=== PATIENT | male | born 1980 | race African-American/Black ===

== ENCOUNTER 2017-09-04 13:48 | Emergency (ER) | payer OTHER ==
[~2017-09-04] VITALS: Ht 182.9 cm; Wt 83.9 kg
[2017-09-04] MEDS ORDERED: NORCO 5-325 TA1 EACH PO (14:37)
== END 2017-09-04 15:08 | disposition home or self-care (01) ==
LOC: ER 13:48
DX: S93.401A Sprain of unspecified ligament of right ankle, initial encounter (principal); X50.3XXA Overexertion from repetitive movements, initial encounter; Y93.67 Activity, basketball; Y92.89 Other specified places as the place of occurrence of the external cause; Y99.8 Other external cause status